=== PATIENT | female | born 1955 | race Caucasian/White ===

== ENCOUNTER 2021-10-15 19:21 | Emergency (ER) | payer MEDICARE, OTHER, SELFPAY ==
[2021-10-15 19:35] VITALS: BP 127/91; PULSE 79; RESP 16; TEMP 36.6; O2SAT 100
--- NOTE | 2021-10-15 19:46 | ED.WOUNDLAC ---
HPI - Wound/Laceration General Chief Complaint: Extremity Injury, Upper Stated Complaint: left middle finger lac Time Seen by Provider: 10/15/21 19:47 Source: patient History of Present Illness HPI narrative: PATIENT CUT THE TIP OF HER LEFT MIDDLE FINGER PRIOR TO ARRIVAL. PATIENT STATES SHE IS NOT ON A BLOOD THINNER BUT IS NOT ABLE TO GET THE BLEEDING TO STOP. NO NUMBNESS OR TINGLING NORMAL ROM OF FINGER. Patient states she was cutting carrots at home for chicken soup and cut her finger at that time. Patient states she is up-to-date on her tetanus shot. Related Data Allergies Allergy/AdvReac Type Severity Reaction Status Date / Time No Known Allergies Allergy Verified 10/15/21 20:00 Review of Systems Review of Systems: CONSTITUTIONAL: Denies fever, chills, or sweats. EYES: Denies visual changes, redness, or discharge. ENT: Denies rhinorrhea, congestion, sore throat, or otalgia. CARDIOVASCULAR: Denies chest pain, palpitations, or edema. RESPIRATORY: Denies cough or dyspnea. GASTROINTESTINAL: Denies abdominal pain, nausea, vomiting, or diarrhea. GENITOURINARY: Denies dysuria or hematuria. SKIN: Denies rash or itching. MUSCULOSKELETAL: Denies back pain, joint pain, or myalgia. NEUROLOGIC: Denies headache, numbness, or weakness. PSYCHIATRIC: Denies anxiety or depression. PMFSH Comments At time of signature, agree with nursing past medical, surgical, social and family history. There is no relevant family history pertinent to the presenting complaint Exam Narrative: GENERAL: Well-appearing, well-nourished, and in no acute distress. HEAD: Normocephalic, atraumatic. EYES: PERRLA and EOMI. ENT: Nares clear, no rhinorrhea or epistaxis. Mucous membranes moist. NECK: Supple. CHEST: Clear to auscultation. No respiratory distress. HEART: Regular rate and rhythm. No murmur heard. Normal peripheral pulses. ABDOMEN: Soft, nontender, nondistended, normal active bowel sounds. EXTREMITIES: Normal range of motion. No edema. Avulsion injury to left middle finger see procedure SKIN: Warm, dry, no rash. NEURO: No focal deficits. Alert and oriented x3. [place] Coma Scale Eye Opening: Spontaneous 4 [place] Coma Scale Motor: Obeys Commands 6 Srinath Coma Scale Verbal: Oriented 5 [place] Coma Scale Total 15 Course Course Level of Care: Express Care Visit Vital Signs Vital signs: Vital Signs Temperature 36.6 C 10/15/21 19:35 Pulse Rate 79 10/15/21 19:35 Respiratory Rate 16 10/15/21 19:35 Blood Pressure 127/91 H 10/15/21 19:35 Pulse Oximetry 100 10/15/21 19:35 Temperature 36.6 C 10/15/21 19:35 Pulse Rate 79 10/15/21 19:35 Respiratory Rate 16 10/15/21 19:35 Blood Pressure 127/91 H 10/15/21 19:35 Pulse Oximetry 100 10/15/21 19:35 Critical dx considered and discussed with pt. Educated patient on red flag s/s and to go to ED if s/s occur. Discussed with pt when to return to [facility] or primary care provider. Pt gave verbal undertstanding, all questions were answered, and pt was agreeable to plan Procedures Laceration Laceration 1: Date: 10/15/21 Time: 20:03 Side (If applicable): left (Middle finger) Depth: simple, single layer Pre-repair: irrigated extensively and other (Avulsion laceration no intervention needed Surgicel dressing applied patient tolerated well) ====== Skin Level ====== ====== Subcutaneous Layer ====== ====== Muscle Layer ====== ====== Tendon Layer ====== Dressing: Surgicel dressing applied with pressure dressing patient tolerated well. Neurovascular intact circular motion intact no numbness or tingling normal range of motion MDM - Wound/Laceration Differential Diagnosis Differential diagnosis: Likely laceration, abscess, abrasion, avulsion of skin and other Critical Care Time Critical Care Time Critical Care Time: No Discharge Plan Discharge Clinical Impression: Avulsion of skin Patient Disposition:
== END 2021-10-15 20:05 | disposition home or self-care (01) ==
PROVIDERS: Emergency Provider Nurse Practitioner Family
DX: S61.203A Unspecified open wound of left middle finger without damage to nail, initial encounter (principal); W45.8XXA Other foreign body or object entering through skin, initial encounter; I10 Essential (primary) hypertension
CPT/HCPCS: 99212; G0463